=== PATIENT | female | born 1970 | race Caucasian/White ===

== ENCOUNTER 2019-04-26 16:38 | Inpatient (IN) | payer MEDICAID, OTHER ==
[~2019-04-26] VITALS: Ht 152.6 cm; Wt 59.9 kg
[2019-04-26 19:01] LABS: BASOPHILS % 0.3 % (0.0-2.0); HEMATOCRIT. 22.6 % (36.0-48.0); HEMOGLOBIN. 7.4 g/dL (12.0-16.0); LYMPHOCYTES % 34.3 % (20.0-50.0); MEAN CORPUSCULAR VOLUME 88.5 fL (81.0-99.0); MEAN PLATELET VOLUME 7.7 fl (7.4-10.4); MONOCYTES % 7.4 % (2.0-8.0); PLATELET 311 x1000/uL (130-400); RED BLOOD CELL COUNT 2.56 mill/uL (4.2-5.4)
[2019-04-26 19:02] LABS: CHLORIDE 96 mEq/L (98-107)
[2019-04-26 19:05] LABS: PARTIAL THROMBOPLASTIN TIME 26.8 sec (23.4-31.0); PROTHROMBIN TIME 10.6 sec (9.6-11.0)
[2019-04-26 19:09] LABS: BETA HYDROXYBUTYRATE 0.2 mMol/L (0.0-0.3)
[2019-04-26 19:11] LABS: CREATINE KINASE 22 IU/L (26-192)
[2019-04-26 19:14] LABS: CREATINE KINASE MB FRACTION < 1.0 ng/mL (0.5-3.6)
[2019-04-26] MEDS ORDERED: INSULIN REGULAR (HUMULIN R) 300UNITS/3ML IV ONE (19:15)
[2019-04-26] MEDS ORDERED: NITROGLYCERIN 0.4MG TABLET SL SL PRN (22:00)
[2019-04-26] MEDS ORDERED: DOCUSATE SODIUM 100MG CAPSULE PO PRN (22:00)
[2019-04-26] MEDS ORDERED: IPRATROPIUM/ALBUTEROL 0.5-3(2.5)MG/3ML NEB INH PRN (22:00)
[2019-04-26] MEDS ORDERED: DEXTROSE 50% WATER 50ML SYRINGE IV PRN (22:00)
[2019-04-26] MEDS ORDERED: ONDANSETRON HCL 4MG/2ML INJ IV PRN (22:00)
[2019-04-26] MEDS ORDERED: CLONIDINE 0.1MG TABLET PO PRN (22:00)
[2019-04-26] MEDS ORDERED: ZOLPIDEM TARTRATE 5MG TABLET PO PRN (22:00)
[2019-04-26] MEDS ORDERED: INSULIN GLARGINE UD 100 UNITS/ML SYR SUBCUT SCH (22:00)
[2019-04-26] MEDS ORDERED: KETOROLAC 15MG/ML VIAL IV PRN (22:00)
[2019-04-26] MEDS ORDERED: GUAIFENESIN 200MG/10ML SUGAR FREE UDC PO PRN (22:00)
[2019-04-26] MEDS ORDERED: MAGNESIUM/ALUMINUM HYDROXIDE/SIMETHICONE 30ML UDC PO PRN (22:00)
[2019-04-26] MEDS ORDERED: ACETAMINOPHEN 325MG TABLET PO PRN (22:00)
[2019-04-26 23:26] LABS: T4 FREE 1.29 ng/dL (0.76-1.46)
[2019-04-27 01:20] LABS: VITAMIN B12 SERUM 784 pg/mL (211-911)
[2019-04-27 02:00] VITALS: BP 145/67
[2019-04-27] MEDS ORDERED: INSULIN GLARGINE UD 100 UNITS/ML SYR SUBCUT SCH (02:00)
[2019-04-27 04:00] VITALS: BP 131/57
[2019-04-27] MEDS ORDERED: INSULIN LISPRO 100 UNITS/ML SUBCUT SCH ×2 (07:20→07:50)
[2019-04-27] MEDS ORDERED: BLOOD SUGAR DIAGNOSTIC STRIP TEST SCH (07:20)
[2019-04-27] MEDS ORDERED: FERROUS SULFATE 325MG TABLET PO SCH (07:50)
[2019-04-27 08:00] VITALS: BP 89/42
[2019-04-27] MEDS ORDERED: CEFTRIAXONE 1 G PREMIX 50 ML IV SCH ×2 (08:00→09:00)
[2019-04-27] MEDS ORDERED: FAMOTIDINE 20MG TABLET PO SCH (09:00)
[2019-04-27] MEDS ORDERED: METOPROLOL TARTRATE 25MG TABLET PO SCH (09:00)
[2019-04-27] MEDS ORDERED: ENOXAPARIN 30MG/0.3ML SYR SUBCUT SCH (09:00)
[2019-04-27 11:20] VITALS: BP 113/75
== END 2019-04-27 12:03 | disposition home or self-care (01) | DRG 420 ==
LOC: ER 16:38 → 6EST 19:27 → EDBEDREQSVC 21:37 → EDBEDREQ 21:37 → EDBEDREQTM 21:37 → ENRESERV 23:59 → CANBEDREQ 04-27 07:52
PROVIDERS: ADMIT Internal Medicine; ATTEND Family Medicine
DX: E11.65 Type 2 diabetes mellitus with hyperglycemia (principal); N17.0 Acute kidney failure with tubular necrosis; E43 Unspecified severe protein-calorie malnutrition; D64.9 Anemia, unspecified; I25.10 Atherosclerotic heart disease of native coronary artery without angina pectoris; E83.51 Hypocalcemia; I10 Essential (primary) hypertension; E87.1 Hypo-osmolality and hyponatremia; D63.8 Anemia in other chronic diseases classified elsewhere; Z87.440 Personal history of urinary (tract) infections; Z79.4 Long term (current) use of insulin; Z68.25 Body mass index [BMI] 25.0-25.9, adult
CPT/HCPCS: 36415; 71045; 80061; 82010; 82550; 82553; 82607; 82746; 82962; 83036; 83540; 83550; 83735; 83880; 84439; 84443; 84484; 86850; 86900; 93005; 93970; 96372; 96374; 99285; J0696; J1650; J1815; J7040